=== PATIENT | female | born 1995 | race Caucasian/White ===

== ENCOUNTER 2024-09-17 15:36 | Emergency (ER) | payer OTHER, SELFPAY ==
[2024-09-17 15:38] VITALS: BP 134/91
[2024-09-17 16:01] LABS: Hematocrit 35.6 % (37.0-47.0); Hemoglobin 13.2 g/dL (12.0-16.0); Mean Corp Hgb Conc. 37.1 g/dL (33.0-37.0); Mean Corpuscular Volume 84.0 fL (81.0-99.0); Nucleated Red Blood Cells % 0 %; Platelet Count 223 10^3/uL (130-400); Red Cell Dist. Width 12.2 % (11.5-14.5)
[2024-09-17 16:10] LABS: HCG, Serum Qualitative Screen Negative
[2024-09-17 16:11] LABS: ALT (SGPT) 17 U/L (0-35); AST (SGOT) 23 U/L (14-36); Albumin 4.8 g/dl (3.5-5.0); Alkaline Phosphatase 36 U/L (38-126); Blood Urea Nitrogen 14 mg/dl (7-17); Calcium 9.5 mg/dl (8.4-10.2); Carbon Dioxide 26 mmol/L (22-30); Chloride 106 mmol/L (98-107); Glucose 103 mg/dl (70-99); Potassium 4.2 mmol/L (3.5-5.1); Sodium 135 mmol/L (135-145); Total Protein 7.8 g/dl (6.3-8.2); eGFR > 60.00
[2024-09-17 17:49] VITALS: BP 129/91
[2024-09-17 19:16] VITALS: BP 123/78; BMI 23.9
--- NOTE | 2024-09-17 19:47 | ED.GENMED ---
History of Present Illness
General
Chief Complaint: Headache
Source: patient
Exam Limitations: none
Time Seen by Provider: 09/17/24 19:24
Nursing documentation reviewed up to this point in time: agreed with
History of Present Illness
History of Present Illness:
29 yo female presents emergency room complaining of headache and back her head and right sided numbness since . Over the past month states she was having trouble finding words. She saw her primary care doctor yesterday and was prescribed
Nurtec. It did not help. She was then recommended to come to the emergency department.
Past History
Past History
ED Past Medical History: Other (POTS, low blood sugars)
ED Past Surgical History: Gynecological (D and E)
Social History
Tobacco: Non-smoker
Alcohol: None
Drug: None
Personal:
Living: with family
Review of Systems
Review of Systems
Allergies reviewed?: Yes
All Other Systems: Not applicable
Constitutional: Reports no symptoms
EENT: Reports no symptoms
Respiratory: Reports no symptoms
Cardiac: Reports no symptoms
ABD/GI: Reports no symptoms
: Reports no symptoms
Musculoskeletal: Reports no symptoms
Skin: Reports no symptoms
Neurological: Reports headache and numbness
Endocrine: Reports no symptoms
Hematologic/Lymphatic: Reports no symptoms
Psychiatric: Reports no symptoms
Phy Exam
Physical Exam
Physical Exam:
Physical Exam
General: no apparent distress, not acutely ill
Neck: supple. no meningeal signs. normal posterior pharynx
Heart: s1/s2 regular rate and rhythm, no murmur. equal radial
pulses.
HEENT: Pupils equal round reactive to light, EOMI
Lungs: no acute respiratory distress. clear bilaterally
Abdomen: normal bowel sounds. not tender. no CVAT
Neuro: alert and oriented. no focal neurological deficits cranial nerves II through XII intact
Skin: no rash
Psychiatric: well kept. interactive and cooperative
Extremities: no edema. no calf tenderness. negative homans. good distal pulses
Course
Orders/Labs/Results
Orders:
Orders
09/17/24 15:47
CT Head W/o Iv Contrast Urgent
Comment:
Reason For Exam: dizzy, TELLO, weakness R side
Test Result ONCE
09/17/24 15:51
CBC/With Diff [Complete Blood Count/With Diff] Urgent
Comprehensive Metabolic Panel Urgent
HCG, Serum Qualitative Screen Urgent
09/17/24 20:52
Ketorolac [Toradol] 15 mg .ROUTE .STK-MED ONE
09/17/24 21:11
Ketorolac [Toradol] 15 mg IM NOW STA
09/17/24 21:18
Ketorolac [Toradol] 15 mg IM NOW STA
Abnormal Lab Results
09/17/24
15:51
Hct 35.6 L %
(37.0-47.0)
MCH 31.1 H pg
(27.0-31.0)
MCHC 37.1 H g/dL
(33.0-37.0)
MPV 11.0 H fL
(7.4-10.4)
Glucose 103 H mg/dl
(70-99)
Alkaline Phosphatase 36 L U/L
(38-126)
09/17/24 15:51
09/17/24 15:51
Vital Signs
Initial and Last Documented VS:
Initial Vital Signs
Temp Pulse Resp BP Pulse Ox
98.2 F 87 16 134/91 98
09/17/24 15:38 09/17/24 15:38 09/17/24 15:38 09/17/24 15:38 09/17/24 15:38
Last Documented Vital Signs
Temp Pulse Resp BP Pulse Ox
98.2 F 67 18 122/67 100
09/17/24 15:38 09/17/24 22:23 09/17/24 22:23 09/17/24 22:23 09/17/24 22:23
MDM/Problems Addressed
Differential Diagnosis Includes:
Migraine, CVA, TIA
MDM/Problems Addressed:
29-year-old female with right-sided headache, suspect migraine. Doubt TIA or CVA. Patient is symptom-free after receiving IM Toradol. CT head normal.
Chronic conditions affecting care: Other (POTS)
*Radiology
Radiology exam reviewed: radiology read reviewed (CT head no acute findings)
*Pulse Oximetry
SaO2: 100
Oxygen Mode of Delivery: Room air
Patient hypoxic: no
*Critical Care Note
Total Time (30-74mins, 75-104mins- exclusive of procedures): Not Applicable
Patient Management
Social determinants of health affecting care: Living situation and Strong social support
Escalation/DeEscalation of care consider admission/obs:
Admission not indicated
ED Attending Note
-
Portions of this chart may have been created with voice recognition software.� Occasional wrong word or��sound alike� substitutions may have occurred due to the inherent limitations of voice recognition software.
Discharge Plan
Departure
Patient Disposition: Home (Routine Discharge)
Date of Disposition: 09/17/24
Time of Disposition: 22:15
Patient with high blood pressure during this ER visit?: Yes
Condition: Good
Discharge Problem:
Headache
Instructions: Headache, Adult (DC), BLOOD PRESSURE
Referrals:
AMANDEEP LOCKHART, DO [Family Provider] - Call in 1-3 days for appt
Interventions
Interventions:
*Risk Screen - Suicide Last Done: 09/17/24 15:38
*General Assessment Last Done: 09/17/24 22:23
*Neglect/Abuse Screening Last Done: 09/17/24 15:38
*ED- Fall Risk Assessment Last Done: 09/17/24 22:23
*ED COVID-19 Vaccine History Last Done: 09/17/24 22:23
*Nursing Disposition Last Done: 09/17/24 22:23
ED- Neurological Assessment Last Done: 09/17/24 19:19
Discharge Date and Time
Discharge Date/Time: 09/17/24 22:24
Print Language: [id number]
[2024-09-17] MEDS: TORADOL 15 MG IM (21:14)
[2024-09-17 22:23] VITALS: BP 122/67
== END 2024-09-17 22:24 | disposition home or self-care (01) ==
LOC: EMR 15:36
PROVIDERS: Emergency Medicine; EMERGENCY PHYSICIAN Emergency Medicine; FAMILY PHYSICIAN Family Medicine
DX: R51.9 Headache, unspecified (principal); R20.0 Anesthesia of skin
CPT/HCPCS: 99284; 96372; 70450; 80053; 84703; 85025